=== PATIENT | male | born 1950 | race Caucasian/White ===

== ENCOUNTER → 2020-04-21 14:45 | Outpatient (CLI) | payer OTHER, SELFPAY ==
--- NOTE | ~2020-04-21 | MR_ITS ---
EXAMINATION: MR brain/brain stem wo con DATE: 04/21/2020 15:32 INDICATION: Recurrent vertigo. Bilateral tinnitus. TECHNIQUE: Magnetic resonance imaging (MRI) of the brain and brainstem was performed without intraven ous contrast. Sequences included sagittal and axial T1-weighted FSE, axial diffusion-weighted FS EPI, axial T2*-weighted GRE, axial T2-weighted FLAIR Propeller, axial T2-weighted Propeller, small field- of-view coronal FIESTA, small kragq-hx-idrx coronal T1-weighted FSE, and small onjvx-bb-eoce axial T1 -weighted SPGR. Apparent diffusion coefficient (ADC) maps were created. COMPARISON: None. FINDINGS: There is no intracranial hemorrhage, acute infarction, or abnormal intracranial mass lesion . The ventricles are normal in size. The paranasal sinuses are clear. The orbits are normal. There is a trace left mastoid effusion. The internal auditory canals and inner and middle ears are normal. IMPRESSION: 1. Normal brain. Reviewed, dictated and finalized at location B. IMPRESSION: 1. Normal brain.
== END ==
PROVIDERS: Visit Provider Student in an Organized Health Care Education/Training Program
DX: R42 Dizziness and giddiness (principal); R26.89 Other abnormalities of gait and mobility; H93.13 Tinnitus, bilateral
CPT/HCPCS: 70551

== ENCOUNTER 2022-09-04 08:12 | Outpatient (CLI) | payer OTHER, SELFPAY ==
[2022-09-04 07:37] LABS: Albumin Level 4.2 g/dL (3.5-5.1); Anion Gap 4 mmol/L (8-16); Blood Urea Nitrogen 13 mg/dL (9-20); Calcium 9.4 mg/dL (8.4-10.2); Carbon Dioxide 30 mmol/L (22-30); Chloride 108 mmol/L (98-107); Estimated Glomerular Filt Rate > 60; Glucose 92 mg/dL (65-110); Phosphorus 2.7 mg/dL (2.5-4.5); Potassium 4.2 mmol/L (3.4-5.0); Sodium 142 mmol/L (137-145)
[2022-09-04 07:46] LABS: Parathyroid Intact 239.2 pg/mL (7.5-53.5)
[2022-09-04 08:06] LABS: Vitamin D 25 Hydroxy 52.6 ng/mL
== END 2022-09-04 08:13 | disposition home or self-care (01) ==
PROVIDERS: Visit Provider Internal Medicine Endocrinology, Diabetes & Metabolism
DX: E21.3 Hyperparathyroidism, unspecified (principal); R26.89 Other abnormalities of gait and mobility; E07.9 Disorder of thyroid, unspecified
CPT/HCPCS: 36415; 80069; 82306; 82607; 83970; 84443

== ENCOUNTER 2022-09-15 10:05 | Outpatient (CLI) | payer OTHER, SELFPAY ==
[2022-09-15 11:33] LABS: Creatinine Urine 96.4 mg/dL
[2022-09-15 11:43] LABS: Creatinine 24 Hour Urine 1.6 gm/24 (1.0-2.0); Total Volume 24 Hour Urine 1750 ml
[2022-09-25 13:48] LABS: Total Volume 1750 mL; Urine Calcium 11.4 mg/dL
== END 2022-09-15 10:06 | disposition home or self-care (01) ==
LOC: ANHLAB 10:05
PROVIDERS: PCP Student in an Organized Health Care Education/Training Program; Visit Provider Internal Medicine Endocrinology, Diabetes & Metabolism
DX: E21.3 Hyperparathyroidism, unspecified (principal); Z13.820 Encounter for screening for osteoporosis
CPT/HCPCS: 81050; 82340; 82570

== ENCOUNTER 2022-10-05 10:35 | Outpatient (CLI) | payer OTHER, SELFPAY ==
--- NOTE | ~2022-10-05 | NM_ITS ---
EXAMINATION: NM parathyroid w imaging DATE: 10/05/2022 15:36 INDICATION: Parathyroid adenoma. TECHNIQUE: 19.6 mCi Tc99m sestamibi was administered intravenously. Anterior images of the neck were obtained immediately and at 3 hours. SPECT images of the neck were obtained. COMPARISON: None. FINDINGS: There is persistent focal increased activity in the area of inferior right thyroid lobe. IMPRESSION: 1. Persistent focal increased activity in the area of inferior right thyroid lobe, consistent with a parathyroid adenoma. Reviewed, dictated and finalized at location A. Y LIQUEFIER IMPRESSION: 1. Persistent focal increased activity in the area of inferior right thyroid lo be, consistent with a parathyroid adenoma.
== END 2022-10-05 10:36 | disposition home or self-care (01) ==
PROVIDERS: PCP Student in an Organized Health Care Education/Training Program; Visit Provider Internal Medicine Endocrinology, Diabetes & Metabolism
DX: E21.3 Hyperparathyroidism, unspecified (principal); Z13.820 Encounter for screening for osteoporosis
CPT/HCPCS: 78070; A9500

== ENCOUNTER → 2022-10-08 11:36 | Outpatient (CLI) | payer OTHER, SELFPAY ==
--- NOTE | ~2022-10-08 | DEXA_ITS ---
Bone Density Report Name: BRUNA JENSEN Age: 72 Sex: Male Ethnicity: White Date of : 1950 Indication: screening for osteoporosis; parental hip fracture; Referring Provider: Anna Pratt Study: Bone densitometry was performed. Exam Date: October 08, 2022 Accession number: [id number] Bone Density: Region BMD T-score Z-score Classification AP Spine (L1, L2) 1.057 0.0 1.0 Normal Femoral Neck (Left) 0.833 -0.7 0.6 Normal Total Hip (Left) 1.010 -0.2 0.6 Normal Femoral Neck (Right) 0.790 -1.0 0.2 Normal Total Hip (Right) 0.966 -0.4 0.3 Normal Total Hip Mean 0.988 -0.3 0.5 Normal World Health Organization criteria for BMD impression classify patients as: Normal (T-score at or above -1.0), Osteopenia (T-score between -1.0 and -2.5), or Osteoporosis (T-score at or below -2.5). 10-year Fracture Risk: FRAX not reported because: All T-scores for Spine Total, Hip Total, Femoral Neck at or above -1.0 Clinical Information Provided by Patient: Parent has had a hip fracture Patient maximum height was 72.5 Drinks caffeinated beverages Impression: The patient has normal bone mass. The patient has risk factors, including: parental hip fracture. Discussion: BONE DENSITY IS ABOVE THE MINIMUM DESIRABLE LEVEL AT ALL SKELETAL SITES TESTED. This patient?s bone mineral density is above the minimum desirable level (T-score -1.0 or better) at all sites measured. The patient should follow a healthful lifestyle (good nutrition with adequate calcium and vitamin D, and appropriate weight-bearing exercise). Follow-Up: Consider repeating this study in 5 years or sooner if there is some new clinical indication. Reported by: NGOZI on 10/08/2022 12:21:00 PM. Reviewed, dictated and finalized at location A. [facility]
== END ==
PROVIDERS: PCP Student in an Organized Health Care Education/Training Program; Visit Provider Internal Medicine Endocrinology, Diabetes & Metabolism
DX: E21.3 Hyperparathyroidism, unspecified (principal)
CPT/HCPCS: 77080

== ENCOUNTER 2023-01-15 01:08 | Day surgery (SDC) | payer OTHER, SELFPAY ==
[2022-12-31 15:55] VITALS: BMI 25.7
[2023-01-15 11:32] VITALS: BP 134/74; PULSE 57; RESP 16; TEMP 36.3; O2SAT 99; BMI 25.7
[2023-01-15] MEDS: LACTATED RINGERS 1,000 ML 150 ML IV CONT (11:51)
--- NOTE | 2023-01-15 11:56 | PM.HPGS ---
History of Present Illness History of Present Illness Consent: Risks, benefits, and alternatives have been discussed and questions answered. Patient agrees to proceed with procedure. Chief complaint: hx colon polyps Narrative: Ryan Lindsey is a 72 year old male Presents for screening colonoscopy. Patient's current weight appetite and bowel movements are normal. Patient denies abdominal pain. He has a history of adenomatous colon polyps removed from the colon 2016. Patient presents today for surveillance colonoscopy. Patient states in frequently he has noticed a fleeting pain adjacent to his anus. He states this is not necessarily associated with bowel movements appears to be external to the side of his anus. Not present today and occurs not very often at all. He wishes me to evaluate this at time of endoscopy. Review of Systems Review of Systems: Review of systems noncontributory. [facility] Past Medical History Medical History GERD without esophagitis Primary osteoarthritis of both knees Family History Family History Father Family history of congestive heart failure, Onset Age: 84 Patient's father is , Onset Age: 84 Social History Social History (Updated 11/12/22 @ 08:33 by SERVANDO Stock) Smoking packs per day: 0.25 Smoking cigarettes per day: 5.0 Years smoked: 20 Smoking pack-years: 5.00 Smoking status: Former smoker Tobacco type: cigarettes Smokeless tobacco user: chewing tobacco Smoking end date: 08/26/90 Alcohol intake: current Alcohol use details: rare Substance use: never Substance use type: does not use Lack of Transportation: No Lack of Food: Never True Current Housing: I Have Housing Concerned About Future Housing: No Difficulty Paying Gas/Electric Bills: No Difficulty Paying for Meds: No Currently Unemployed: No Education: Bachelor's Degree Difficulty w/ Childcare or Family Care: No Living arrangements: with family Occupation/Education: retired Gender identity (if verbalized by the patient): Male Spiritual care concerns: No Meds Home Medications and Allergies Home Medications Medication Instructions Recorded Confirmed Type multivitamin 1 cap PO DAILY 08/28/19 12/31/22 History lutein 20 mg tablet 20 mg PO DAILY 08/30/22 12/31/22 History omega 1-hje-epn-fish oil 300 1 cap PO DAILY 08/30/22 12/31/22 History mg-1,000 mg capsule (Fish Oil) rosuvastatin 5 mg tablet 5 mg PO DAILY 08/30/22 12/31/22 History saw palmetto 450 mg capsule 450 mg PO DAILY 08/30/22 12/31/22 History Allergies Allergy/AdvReac Type Severity Reaction Status Date / Time Penicillins Allergy Intermediate rash Verified 12/31/22 15:54 doxycycline Allergy Mild tingling Verified 12/31/22 15:54 in fingers erythromycin base Allergy Mild rash Verified 12/31/22 15:54 MYOCIN Allergy Intermediate rash Uncoded 12/31/22 15:54 Vital Signs Vital Signs - 24 hr 01/15/23 11:32 Temperature 97.4 F L Pulse Rate 57 L Respiratory Rate 16 Blood Pressure 134/74 Pulse Oximetry 99 Oxygen Delivery Room Air Exam Narrative: Physical exam reveals patient to be alert. Vital signs stable. HEENT exam is unremarkable. Patient is anicteric. Lungs are clear. Heart without murmur. Abdomen bowel sounds present soft nontender with no organomegaly. Digital external rectal exam peers normal with no obvious lesions. No tenderness noted. Assessment and Plan Assessment and plan (1) History of colon polyps: Code(s): Z86.010 - Personal history of colonic polyps Status: Acute Assessment and Plan: Patient has a history of colon polyps. Plan for surveillance colonoscopy now and consider this a 5 year intervals.
--- NOTE | 2023-01-15 12:23 | WPDANESEPPF ---
Anes - Initial Pre Proc Eval Procedure: Operation Date: 01/15/23 12:30 Proposed Procedures p Colonoscopy - Eder Kramer MD Date/Time: 01/15/23 12:23 Surgeon: Eder Kramer MD Pre Op Diagnosis: hx colon polyps Patient Data Age: 72 Gender: M Height: 1.83 m Weight: 86.1 kg Last Vital Signs Temp 97.4 F L 01/15/23 11:32 Pulse 57 L 01/15/23 11:32 Resp 16 01/15/23 11:32 BP 134/74 01/15/23 11:32 Pulse Ox 99 01/15/23 11:32 O2 Del Method Room Air 01/15/23 11:32 Allergies Allergy/AdvReac Type Severity Reaction Status Date / Time Penicillins Allergy Intermediate rash Verified 12/31/22 15:54 doxycycline Allergy Mild tingling Verified 12/31/22 15:54 in fingers erythromycin base Allergy Mild rash Verified 12/31/22 15:54 MYOCIN Allergy Intermediate rash Uncoded 12/31/22 15:54 Home Medications Medication Instructions Recorded Confirmed Type multivitamin 1 cap PO DAILY 08/28/19 12/31/22 History lutein 20 mg tablet 20 mg PO DAILY 08/30/22 12/31/22 History omega 8-hdz-rif-fish oil 300 1 cap PO DAILY 08/30/22 12/31/22 History mg-1,000 mg capsule (Fish Oil) rosuvastatin 5 mg tablet 5 mg PO DAILY 08/30/22 12/31/22 History saw palmetto 450 mg capsule 450 mg PO DAILY 08/30/22 12/31/22 History Patient hx anesthesia problems: none Family hx anesthesia problems: none Results Review: All pre-operative results and documents have been reviewed as part of the pre-operative evaluation. [facility] Past Medical History Medical History GERD without esophagitis Primary osteoarthritis of both knees Family History Family History Father Family history of congestive heart failure, Onset Age: 84 Patient's father is , Onset Age: 84 Social History Social History (Updated 11/12/22 @ 08:33 by SERVANDO Stock) Smoking packs per day: 0.25 Smoking cigarettes per day: 5.0 Years smoked: 20 Smoking pack-years: 5.00 Smoking status: Former smoker Tobacco type: cigarettes Smokeless tobacco user: chewing tobacco Smoking end date: 08/26/90 Alcohol intake: current Alcohol use details: rare Substance use: never Substance use type: does not use Lack of Transportation: No Lack of Food: Never True Current Housing: I Have Housing Concerned About Future Housing: No Difficulty Paying Gas/Electric Bills: No Difficulty Paying for Meds: No Currently Unemployed: No Education: Bachelor's Degree Difficulty w/ Childcare or Family Care: No Living arrangements: with family Occupation/Education: retired Gender identity (if verbalized by the patient): Male Spiritual care concerns: No Anes - Eval Final PreProcedure Day of Procedure 01/15/23 12:23 Patient weight: normal Heart: regular rate and rhythm Lungs: clear to auscultation Airway: Mallampati scale class II Neurological: alert and oriented Last oral intake: >/= 8 hours ASA classification: II Emergent: no Anesthetic plan: proceed Anesthesia type and monitoring: general GIVS and standard monitoring Results Review: All pre-operative results and documents have been reviewed as part of the pre-operative evaluation. Informed Consent: The patient's anesthetic plan and its attendant risks and benefits were discussed with the patient/family/POA. Questions were solicited and answers provided to the satisfaction of the patient/family/POA.
[2023-01-15] MEDS: SIMETHICONE ORAL SUSPENSION 20 MG/0.3 ML 30 ML BOTTLE 0.6 ML IRRIGATION (12:50)
[2023-01-15 12:55] VITALS: BP 119/70; PULSE 50; RESP 22; O2SAT 100
[2023-01-15 13:05] VITALS: BP 126/70; PULSE 58; RESP 20; O2SAT 99
[2023-01-15 13:15] VITALS: BP 136/66; PULSE 52; RESP 20; O2SAT 100
== END 2023-01-15 13:24 | disposition home or self-care (01) ==
PROVIDERS: PCP Student in an Organized Health Care Education/Training Program; Visit Provider Internal Medicine Gastroenterology
PROC: 0DJD8ZZ Inspection of Lower Intestinal Tract, Via Natural or Artificial Opening Endoscopic (ICD-10-PCS; CPT 45378; principal; 2023-01-15 12:30)
DX: Z12.11 Encounter for screening for malignant neoplasm of colon (principal); K57.30 Diverticulosis of large intestine without perforation or abscess without bleeding; Z86.010 Personal history of colon polyps; K64.8 Other hemorrhoids; M17.0 Bilateral primary osteoarthritis of knee; Z87.891 Personal history of nicotine dependence
CPT/HCPCS: G0105; J2704; J7120

== ENCOUNTER 2023-03-26 09:14 | Outpatient (CLI) | payer OTHER, SELFPAY ==
[2023-03-26 13:02] LABS: Albumin Level 4.2 g/dL (3.5-5.1); Anion Gap 5 mmol/L (8-16); Blood Urea Nitrogen 14 mg/dL (9-20); Calcium 9.9 mg/dL (8.4-10.2); Carbon Dioxide 31 mmol/L (22-30); Chloride 105 mmol/L (98-107); Estimated Glomerular Filt Rate > 60; Glucose 92 mg/dL (65-110); Phosphorus 2.5 mg/dL (2.5-4.5); Potassium 4.7 mmol/L (3.4-5.0); Sodium 141 mmol/L (137-145)
[2023-03-26 13:14] LABS: Parathyroid Intact 181.7 pg/mL (7.5-53.5)
[2023-03-26 13:20] LABS: Vitamin D 25 Hydroxy 53.4 ng/mL
== END 2023-03-26 09:15 | disposition home or self-care (01) ==
LOC: ANHWCLAB 09:15
PROVIDERS: PCP Student in an Organized Health Care Education/Training Program; Visit Provider Internal Medicine Endocrinology, Diabetes & Metabolism
DX: R79.89 Other specified abnormal findings of blood chemistry (principal); D35.1 Benign neoplasm of parathyroid gland; E21.3 Hyperparathyroidism, unspecified
CPT/HCPCS: 36415; 80069; 82306; 83970

== ENCOUNTER 2024-04-11 08:11 | Emergency (ER) | payer OTHER, SELFPAY ==
[2024-04-11 08:27] VITALS: BP 136/86; PULSE 55; RESP 16; TEMP 36.2; O2SAT 100
--- NOTE | 2024-04-11 08:45 | ED.SKABFB ---
HPI - Skin/Abscess/Foreign Bdy General Chief complaint: Skin/Abscess/Foreign Body Stated complaint: rash, pos shingles/poison cinthia Time Seen by Provider: 04/11/24 08:40 Source: patient, RN notes reviewed and old records reviewed Mode of arrival: ambulatory Limitations: no limitations History of Present Illness HPI narrative: 73 year old male presents to [facility] care with complaints of rash for the past 4 days to his right inner arm at the elbow are, right lateral abdominal area and also small area to his left inner arm which is itchy.He reports that he has applied OTC topical medication for the itch and used topical antibacterial wash to rash areas.Patient reports that that he was playing disc golf and thinks he was exposed to some poisonous plant. Patient denies any difficulty breathing or any difficulty swallowing. MD complaint: rash Onset (ago): day(s) (4) Quality: pruritic Treatments prior to arrival: OTC topical medication Related Data Home Medications Medication Instructions Recorded Confirmed multivitamin 1 cap PO DAILY 08/28/19 04/11/24 lutein 20 mg tablet 20 mg PO DAILY 08/30/22 04/11/24 saw palmetto 450 mg capsule 450 mg PO DAILY 08/30/22 04/11/24 cetirizine 10 mg tablet (Zyrtec) 10 mg PO DAILY PRN Allergy Symptoms 02/05/24 04/11/24 omega 1-skm-dqn-fish oil 300 1 cap PO .twice weekly 02/05/24 04/11/24 mg-1,000 mg capsule (Fish Oil) rosuvastatin 10 mg tablet 10 mg PO DAILY 04/11/24 04/11/24 Allergies Allergy/AdvReac Type Severity Reaction Status Date / Time Penicillins Allergy Intermediate rash Verified 02/05/24 14:56 doxycycline Allergy Mild tingling Verified 02/05/24 14:56 in fingers erythromycin base Allergy Mild rash Verified 02/05/24 14:56 MYOCIN Allergy Intermediate rash Uncoded 02/05/24 14:56 Review of Systems Review of Systems: CONSTITUTIONAL: Denies fever, chills, or sweats. CARDIOVASCULAR: Denies chest pain, palpitations, or edema. RESPIRATORY: Denies cough or dyspnea. SKIN: Reports rash to right inner arm,right lateral abdomen, and left arm which is itchy MUSCULOSKELETAL: Denies joint pain or myalgia. NEUROLOGIC: Denies headache, numbness, or weakness. All systems reviewed & are unremarkable except as noted in HPI and below PMFSH Past Medical History Medical History (Updated 04/12/24 @ 19:54 by Ann Walker NP) Elevated cholesterol GERD without esophagitis Primary osteoarthritis of both knees Surgical History Surgical History History of parathyroidectomy 06/2023 Family History Family History Father Family history of congestive heart failure, Onset Age: 84 Patient's father is , Onset Age: 84 Social History Social History Smoking packs per day: 0.25 Smoking cigarettes per day: 5.0 Years smoked: 20 Smoking pack-years: 5.00 Smoking status: Former smoker Tobacco type: cigarettes Smokeless tobacco user: chewing tobacco Smoking end date: 08/26/90 Alcohol intake: current Alcohol use details: rare Substance use: never Substance use type: does not use Lack of Transportation: No Lack of Food: Never True Current Housing: I Have Housing Concerned About Future Housing: No Difficulty Paying Gas/Electric Bills: No Difficulty Paying for Meds: No Currently Unemployed: No Education: Bachelor's Degree Difficulty w/ Childcare or Family Care: No Living arrangements: with family Occupation/Education: retired Gender identity (if verbalized by the patient): Male Spiritual care concerns: No Comments At time of signature, agree with nursing past medical, surgical, social and family history. There is no relevant family history pertinent to the presenting complaint Exam Narrative: GENERAL: Well-appearing, well-nourished, and in no acute dis
== END 2024-04-11 09:03 | disposition home or self-care (01) ==
PROVIDERS: Emergency Provider Registered Nurse; PCP Student in an Organized Health Care Education/Training Program
DX: L25.9 Unspecified contact dermatitis, unspecified cause (principal); E78.00 Pure hypercholesterolemia, unspecified; K21.9 Gastro-esophageal reflux disease without esophagitis; M17.0 Bilateral primary osteoarthritis of knee; Z90.89 Acquired absence of other organs
CPT/HCPCS: 99213; G0463

== ENCOUNTER 2024-11-16 08:30 | Outpatient (CLI) | payer OTHER, SELFPAY ==
--- OUTSIDE RECORDS SUMMARY | 2024-11-16 08:56 | XMS_ITS | Clinical Summary ---
Author Organization [facility] Address [address] [place] [address] Care Team Providers Care Lead Front End Developer Name Role Phone Neftali Forrester MD Unavailable Kaushal Walker MD Unavailable [phone] Antione Valdez DO Primary Care Provider + Source Comments [facility],non-owned Affiliates and Associated Physician Practices is amultiple site organization consisting of ambulatory clinics and hospital sitesin [place], [place], [place] and [place]. This disclosure is being madepursuant to the Care Everywhere program and may not contain all information available regarding this patient. Last updated 18.[facility] Allergies Active Allergy Reactions Criticality Noted Date Comments Allergy Photosensitivity,Swe lling,Headach e 04/26/2021 DOXYCYCLINE Erythromycin Rash,Unknown Medium 04/08/2020 Penicillins Rash Medium 11/20/2008 Tetracycline Rash Medium 11/20/2008 Medications * Be aware that medications may not be up to date on this document. Alwaysverify current medications with the patient. Medication Sig Dispensed Refills Start Date End Date Status cetirizine (ZyrTEC) 10 MG tablet Take 1 (one) tablet by mouth once daily Active Lutein-Zeaxanthin 20-1 MG once daily 2 Active Multiple Vitamins-Minerals (Multi Vitamin/Minerals) TABS Take 1 (one) tablet by mouth once daily Active [place]-3 Fatty Acids (Fish Oil) 600 MG Take 300 mg by mouth once daily Active rosuvastatin (Crestor) 10 MG tablet Take 1 (one) tablet by mouth at bedtime 3 Active clobetasol (Temovate) 0.05 % ointment Apply 1 g to affected area as directed 4 Active Saw [place], Serenoa repens, (SAW PALMETTO PO) Take by mouth once daily Active acetaminophen (Tylenol) 325 MG tablet Take 2 (two) tablets by mouth every 6 hours as needed for Fever or Pain Maximum allowable Acetaminophen amount = 4 Grams (4000 mg) / 24 hours. 30 tablet 1 4 Active ibuprofen (Motrin) 600 MG tablet Take 1 (one) tablet by mouth every 6 hours as needed for Pain 30 tablet 4 Active oxyCODONE, immediate release, (Roxicodone) 5 MG tabletIndications:Primar y hyperparathyroidism (HCC) Take 1 (one) tablet by mouth every 6 hours as needed for Pain 12 tablet 4 Active Active Problems Problem Noted Date Diagnosed Date Routine general medical exam ination at a health care facility 10/27/2013 URI (upper respiratory infection) 06/21/2011 Vitamin D deficiency 02/15/2010 Resolved Problems Problem Noted Date Diagnosed Date Resolved Date Primary hyperparathyroidism 12/22/2022 12/11/2023 Encounters Date Type Department Care Team Description 11/02/2024 Lab Requisition [facility] - DermPath Lab [address] [place] [address] Jc Beauchamp MD Neoplasm of uncertain behavior of skin from Last 3 Months Immunizations Name Administration Dates Next Due INFLUENZA [id number], HISTORIC VACCINE 04/26,06/16/2021,05/04/2020,2018,06/23/2018 INFLUENZA VACCINE 05/16/2023, 5,06/06/2014,2012 INFLUENZA VACCINE, ADJUVANTE D, QUADR. (FLUAD QUADRIVALENT; 65Y+) (AIIV4) 05/16/2023 INFLUENZA VACCINE, HIGH-DOSE , QUADR. (FLUZONE HIGH-DOSE QUADRIVALENT; 65Y+), 0.7 ML (HD-IIV4) 05/13/2022,06/16/2021 INFLUENZA VACCINE, HIGH-DOSE , TRIV. (FLUZONE HIGH-DOSE TRIVALENT; 65Y+) (HD-IIV3) 05/04/2020,06/25/2019,06/23/2018 INFLUENZA VACCINE, TRIV. (FL UZONE; FLULAVAL; FLUARIX; AFLURIA TRIVALENT; 6MO+), 0.5 ML (IIV3) 06/08/2015 PNEUMOCOCCAL PCV VACCINE 05/01/2022 PNEUMOCOCCAL PCV20 CONJ VAC IM 05/01/2022 PNEUMOCOCCAL PPSV23 08/26/2016 Pneumococcal Pcv13 Conj 10/07/2014 RSV AREXVY 60YR+ 0.5ML 07/11/2023 TDAP (7yrs+) 08/26/2016 ZOSTER VACCINE, LIVE 08/26/2017 Zoster Hzv Vacc Recombinant Inj Im 03/09/2021, Social History Tobacco Use Types Packs/Day Years Used Date Smoking Tobacco: Former Cigarettes Smokeless Tobacco: Never Tobacco Cessation:Counseling Given: Not Answered Alcohol Use Standard Drinks/Week Comments No 0 (1 standard drink = 0.6 oz pur e alcohol) AUDIT-C Answer Date Recorded Q1: How often do you have a drink containing alcohol? Never 11/07/2023 Q2: How many drinks containi ng alcohol do you have on a typical day when you are drinking? Patient does not drink Q3: How often do you have si x or more drinks on one occasion? Never 11/07/2023 Sex and Gender Information Value Date Recorded Sex Assigned at Not on file Gender Identity Not on file Sexual Orientation Not on file Last Filed Vital Signs Vital Sign Reading Time Taken Comments Blood Pressure 148/95 12/11/2023 9:24 AM CDT Pulse 89 12/11/2023 9:24 AM CDT Temperature 36.6 C (97.8 F) 11/07/2023 10:40 AM CDT Respiratory Rate 16 11/07/2023 11:30 AM CDT Oxygen Saturation 99% 11/07/2023 11:30 AM CDT Inhaled Oxygen Concentration - - Weight 88.1 kg (194 lb 3.2 oz) 12/11/2023 9:24 A M CDT Height 182.9 cm (6') 12/11/2023 9:24 AM CDT Body Mass Index 26.34 12/11/2023 9:24 AM CDT Plan of Treatment Health Maintenance Due Date Last Done Comments COLOGUARD (AGES 45-75) - COLON CA SCREENING [address] COLONOGRAPHY - COLON CA SCREENING 1950 FIT - COLON CA SCREENING 1950 FLEX SIG - COLON CA SCREENING 1950 MEDICARE AWV 12 MONTHS 1950 COLONOSCOPY - COLON CA SCREENING 05/17/2016 05/17/2006 Colorectal Cancer Screening 05/17/2016 COVID-19 VACCINE ( season) 2024 06/13/2023, 05/12/2022, 01/06/2022, Additional history exists INFLUENZA VACCINE (#1) 2024 3, 05/16/2023, 05/13/2022, Additional history exists DEPRESSION SCREENING 08/26/2024 DTAP/TDAP/TD VACCINES (2 - Td or Tdap) 08/26/2026 08/26/2016 ZOSTER VACCINE Completed 03/09/2021, 04/27, 08/26/2017 PNEUMOCOCCAL VACCINE 50+ Completed 022, 05/01/2022, 08/26/2016, Additional history exists HEPATITIS C SCREENING Completed 06/18/2022 Respiratory Syncytial Virus (RSV) Vaccine Pt: or over 60 yrs Completed 07/11/2023 HEPATITIS B VACCINE Aged Out No longe r eligible based on patient's age to complete this topic HIB VACCINE Aged Out No longer eligi ble based on patient's age to complete this topic HPV VACCINE Aged Out No longer eligi ble based on patient's age to complete this topic MENINGOCOCCAL (Group B) VACCINE SHARED DECISION-MAKING Aged Out No longer eligible based on patient's age to complete this topic MENINGOCOCCAL GROUPS A/C/Y/W VACCINE Aged Out No longer eligible based on patient's age to complete this topic Procedures Procedure Name Priority Date/Time Associated Diagnosis Comments DERMATOPATHOLOGY Routine 11/02/2024 12:0 0 AM CDT Neoplasm of uncertain behavior of skin from Last 3 Months Results * DERMATOPATHOLOGY (11/02/2024 12:00 AM CDT) Case Report Dermatopathology Report Case: [id number] Authorizing Provider: Jc Beauchamp MD Collected: 11/02/2024 12:00 AM Ordering Location: [facility] - Received: 11/03/2024 01:02 PM DermPath Lab Pathologist: Shirley Carvalho MD Specimen: Skin, left medial malar cheek 2:16 PM CDT DERMATOPATHOLOGY LABORATORY Final Diagnosis Specimen A. SKIN, left medial malar cheek: BASAL CELL CARCINOMA, NODULAR TYPE (C44.319) EPIDERMOID CYST WITH EVIDENCE OF RUPTURE (L72.0) 2:16 PM CDT DERMATOPATHOLOGY LABORATORY Clinical History BCC 2:16 PM CDT DERMATOPATHOLOGY LABORATORY Gross Description Specimen A: Received is one formalin filled container labeled with the patients name and designated left medial malar cheek. The specimen consists of a shave removal measuring 8x7x1 mm. Jar 0. 2:16 PM CDT DERMATOPATHOLOGY LABORATORY Microscopic Description Specimen A. SKIN, left medial malar cheek: Within the dermis there are aggregates of basaloid cells with a high nuclear to cytoplasmic ratio and peripheral palisading. Within the dermis, there is a space lined by epithelium that resembles normal epidermis and the infundibular portion of the hair follicle. Surrounding this is an infiltrate with neutrophils, histiocytes, and multinucleated giant cells. 2:16 PM CDT DERMATOPATHOLOGY LABORATORY Disclaimer An external and internal positive and negative controls are appropriate for the histochemical, immunohistochemical and immunofluorescence stain(s) in this case (if any), except where stated explicitly. The performance characteristics of the stain(s) cited in this report were developed and its performance characteristic determined by the Dermatopathology Laboratory at [facility], directed by Dr. Tim Jackson. These tests need not be, and therefore are not, approved by the [place] Food and Drug Administration. The tests are used for clinical purposes. Billing Codes Specimen Charges Stain Charges 86897 1 5 2:16 PM CDT DERMATOPATHOLOGY LABORATORY Embedded Images 5 2:16 PM CDT DERMATOPATHOLOGY LABORATORY Pathology/Cytolog y TISSUE SPECIMEN FROM SKIN / Unknown 11/02/2024 11/03/2024 1:02 PM CDT Jc Beauchamp MD LAB - PATHOLOGY/CYTO LOGY ORDERABLES DERMATOPATHOLOGY LABORATORY [facility] - Department of Dermatology [facility] [address] [place] [address], [facility] [phone] from Last 3 Months Care Teams Lead Front End Developer Relationship Specialty Start Date End Date Antione Valdez DO [address] [place] [id number] PCP - General 11/23/22 Neftali Forrester MD [address] [place] [address] 04/06/10 Kaushal Walker MD [address] [address] 04/06/10
--- OUTSIDE RECORDS SUMMARY | 2024-11-16 08:56 | XMS_ITS | Encounter Summary ---
Author Organization [facility] Address [address] [place] [address] Care Team Providers Care Milled Rice Broker Name Role Phone Antione Valdez DO Primary Care Provider + Encounter Details Date Type Department Care Team (Late st Contact Info) Description 11/16/2024 7:40 AM CDT Laboratory Only [facility] Family & Internal Medicine [facility] [address] [place] [address] Antione Valdez DO [address] [place], [place] [phone] Social History Tobacco Use Types Packs/Day Years Used Date Smoking Tobacco: Former Cigarettes Q uit: 08/26/1977 Smokeless Tobacco: Never Comments:NA Alcohol Use Standard Drinks/Week Comments Not Currently 0 (1 standard drink = 0.6 oz pure alcohol) Maybe 2 highballs a year maybe. AUDIT-C Answer Date Recorded Q1: How often do you have a drink containing alc ohol? Monthly or less 03/23/2024 Q2: How many drinks containi ng alcohol do you have on a typical day when you are drinking? Patient declined 03/23/2024 Q3: How often do you have si x or more drinks on one occasion? Never 03/23/2024 PHQ-2 Answer Date Recorded Patient Health Questionnaire-2 Score 0 08/12/2024 Sex and Gender Information Value Date Recorded Sex Assigned at Male 08/12/2024 11:32 AM PROFESSOR OF COUNSELING Legal Sex Male 10:45 AM CDT Gender Identity Male 09/18/2021 5:33 AM PROFESSOR OF COUNSELING Sexual Orientation Straight 09/18/2021 5: 33 AM PROFESSOR OF COUNSELING documented as of this encounter Plan of Treatment Not on file documented as of this encounter Procedures Procedure Name Priority Date/Time Associated Diagnosis Comments COLLECTION VENOUS BLOOD VENIPUNCTURE Routine 11/16/2024 8:08 AM CDT Pure hypercholesterolemia Mild episode of recurrent major depressive disorder Annual physical exam Screening for prostate cancer documented in this encounter Visit Diagnoses Diagnosis Pure hypercholesterolemia Mild episode of recurrent major depressive disorder Annual physical exam Routine general medical examination at a health care facility Screening for prostate cancer Special screening for malignant neoplasm of prostate documented in this encounter Additional Health Concerns Assessment Noted Time PHQ-9 Depression Total Score: 0 03/23/20 24 11:14 AM CDT documented as of this encounter Care Teams Milled Rice Broker Relationship Specialty Start Date End Date Antione Valdez DO [address] [place] [address] PCP - General FAMILY PRACTICE 04/08/20 documented as of this encounter
--- OUTSIDE RECORDS SUMMARY | 2024-11-16 08:56 | XMS_ITS | Encounter Summary ---
Author Organization [facility] Address [address] [place] [address] Care Team Providers Care Mucking Machine Operator Name Role Phone Antione Valdez DO Primary Care Provider + Encounter Details Date Type Department Care Team (Latest Contact Info) Description 11/16/2024 Travel Social History Tobacco Use Types Packs/Day Years [...] Sex Assigned at Male 08/12/2024 11:32 AM COW PUNCHER Legal Sex Male 10:45 AM CDT Gender Identity Male 09/18/2021 5:33 AM COW PUNCHER Sexual Orientation Straight 09/18/2021 5: 33 AM COW PUNCHER documented as of this encounter Plan of Treatment Not on file documented as of this encounter Visit Diagnoses Not on filedocumented in this encounter Additional Health Concerns Assessment Noted Time PHQ-9 Depression Total Score: 0 03/23/20 11:14 AM CDT documented as of this encounter Care Teams Mucking Machine Operator Relationship Specialty Start Date End Date Antione Valdez DO [address] [place] [address] PCP - General FAMILY PRACTICE 04/08/20 documented as of this encounter
--- OUTSIDE RECORDS SUMMARY | 2024-11-16 08:56 | XMS_ITS | Encounter Summary ---
Author Organization [facility] Address [address] [place] [address] Care Team Providers Care Information Support Project Manager Name Role Phone Neftali Forrester MD Unavailable Kaushal Walker MD Unavailable [phone] Antione Valdez DO Primary Care Provider + Encounter Details Date Type Department Care Team (Late st Contact Info) Description 11/02/2024 Lab Requisition [facility] - DermPath Lab [address] [place] [phone] Jc Beauchamp MD [facility] DERMATOLOGY [address] [place] [phone] Neoplasm of uncertain behavior of skin Social History Tobacco Use Types Packs/Day Years Used Date Smoking Tobacco: Former Cigarettes Smokeless Tobacco: Never Alcohol Use Standard Drinks/Week Comments No 0 [...] on file Sexual Orientation Not on file documented as of this encounter Functional Status Functional Status Response Date of Assess ment Is person deaf or have serious hearing difficult y? No 11/07/2023 Is person blind or have serious difficulty seein g? No 11/07/2023 Does person have serious dif ficulty walking/climbing stairs? No 11/07/2023 Does person have difficulty dressing/bathing? No 11/07/2023 Does person have difficulty doing errands alone? No 11/07/2023 Cognitive Status Response Date of Assessm ent Does person have difficulty concentrating/remembering/making decisions? No 11/07/2023 documented as of this encounter Plan of Treatment Not on file documented as of this encounter Procedures Procedure Name Priority Date/Time Associated Diagnosis Comments DERMATOPATHOLOGY Routine 11/02/2024 12:0 0 AM CDT Neoplasm of uncertain behavior of skin documented in this encounter Results * DERMATOPATHOLOGY (11/02/2024 12:00 AM CDT) Case Report Dermatopathology Report Case: [id number] Authorizing Provider: Jc Beauchamp MD Collected: 11/02/2024 12:00 AM Ordering Location: [facility] - Received: 11/03/2024 01:02 PM [...] characteristic determined by the Dermatopathology Laboratory at [facility], directed by Dr. Tim Jackson. These tests need not be, and therefore are not, approved by the [place] Food and Drug Administration. The tests are used for clinical purposes. Billing Codes Specimen Charges Stain Charges 65677 1 2:16 PM CDT DERMATOPATHOLOGY LABORATORY Embedded Images 2:16 PM CDT DERMATOPATHOLOGY LABORATORY Pathology/Cytolog y TISSUE SPECIMEN FROM SKIN / Unknown 11/02/2024 11/03/2024 1:02 PM CDT Jc Beauchamp MD LAB - PATHOLOGY/CYTO LOGY ORDERABLES DERMATOPATHOLOGY LABORATORY [facility] - Department of Dermatology [facility] Medicine [address] [place] [address], [address] [phone] documented in this encounter Visit Diagnoses Diagnosis Neoplasm of uncertain behavior of skin documented in this encounter Care Teams Information Support Project Manager Relationship Specialty Start Date End Date Antione Valdez DO [facility] [place] [address] PCP - General 11/23/22 Neftali Forrester MD [address] [place] [address] 04/06/10 Kaushal Walker MD [address] [address] 04/06/10 documented as of this encounter
--- OUTSIDE RECORDS SUMMARY | 2024-11-16 08:56 | XMS_ITS | Encounter Summary ---
Author Organization [facility] Address [address] [place] [address] Care Team Providers Care Grinder Set Up Operator Universal Name Role Phone Alexiesau Antione José AMADOR Primary Care Provider + Encounter Details Date Type Department Care Team (Late st Contact Info) Description 05/14/2022 [place] Message Enc [facility] [address] [employer], [facility] Provider Heart monitor results Social History Tobacco Use Types Packs/Day Years Used Date Smoking Tobacco: Former Cigarettes 0.1 10 0 08/26/1975 - 08/26/1985 Smokeless Tobacco: Never Alcohol Use Standard Drinks/Week Comments Not Currently 6.7 (1 standard drin k = 0.6 oz pure alcohol) Maybe 2 highballs a year maybe. PHQ-2 Answer Date Recorded PHQ-2 Score - If the patient scores above 3, please move on to questions 3-9 0 09/20/2021 Sex and Gender Information Value Date Recorded Sex Assigned at Male 08/12/2024 11:32 AM HAND FUNNEL COATER Legal Sex Male 10:45 AM CDT Gender Identity Male 09/18/2021 5:33 AM HAND FUNNEL COATER Sexual Orientation Straight 09/18/2021 5: 33 AM HAND FUNNEL COATER COVID-19 Exposure Response Date Recorded In the last 10 days, have yo u been in contact with someone who was confirmed or suspected to have Coronavirus/COVID-19? No / Unsure 05/01/2022 8:57 AM CDT documented as of this encounter Plan of Treatment Not on file documented as of this encounter Visit Diagnoses Not on filedocumented in this encounter Additional Health Concerns Assessment Noted Time PHQ-9 Depression Total Score: 0 09/20/19 22 9:44 AM HAND FUNNEL COATER documented as of this encounter Care Teams Grinder Set Up Operator Universal Relationship Specialty Start Date End Date Antione Valdez DO [address] [place] [address] PCP - General FAMILY PRACTICE 04/08/20 documented as of this encounter
--- OUTSIDE RECORDS SUMMARY | 2024-11-16 08:56 | XMS_ITS | Encounter Summary ---
Author Organization [facility] Address [address] [place] [address] Care Team Providers Care Natural Gas Treating Unit Operator Name Role Phone Antione Valdez DO Primary Care Provider + Encounter Details Date Type Department Care Team (Late st Contact Info) Description 12/14/2022 MyChart Message Enc [facility] Family & Internal Medicine [facility] [address] [place] [phone] Antione Valdez DO [address] [place], [place] [phone] Do I have an appointment on December 24, 2022? Social History Tobacco Use Types Packs/Day Years Used Date Smoking Tobacco: Former Cigarettes Q uit: 08/26/1977 Smokeless Tobacco: Never Alcohol Use Standard Drinks/Week Comments Not Currently 0 (1 standard drink = 0.6 oz pure alcohol) Maybe 2 highballs a year maybe. PHQ-2 Answer Date Recorded Patient Health Questionnaire-2 Score 0 11/21/2022 Sex and Gender Information Value Date Recorded Sex Assigned at Male 08/12/2024 11:32 AM ARMORED CAR GUARD Legal Sex Male 10:45 AM CDT Gender Identity Male 09/18/2021 5:33 AM ARMORED CAR GUARD Sexual Orientation Straight 09/18/2021 5: 33 AM ARMORED CAR GUARD COVID-19 Exposure Response Date Recorded In the last 10 days, have yo u been in contact with someone who was confirmed or suspected to have Coronavirus/COVID-19? No / Unsure 11/21/2022 7:58 AM CDT documented as of this encounter Plan of Treatment Not on file documented as of this encounter Visit Diagnoses Not on filedocumented in this encounter Additional Health Concerns Assessment Noted Time PHQ-9 Depression Total Score: 0 07/05/20 22 9:47 AM ARMORED CAR GUARD documented as of this encounter Care Teams Natural Gas Treating Unit Operator Relationship Specialty Start Date End Date Antione Valdez DO [address] [place] [id number] PCP - General FAMILY PRACTICE 04/08/20 documented as of this encounter
--- OUTSIDE RECORDS SUMMARY | 2024-11-16 08:56 | XMS_ITS | Encounter Summary ---
Author Organization [facility] Address [address] [place] [address] Care Team Providers Care Washing Machine Striper Name Role Phone Antione Valdez DO Primary Care Provider + Encounter Details Date Type Department Care Team (Late st Contact Info) Description 05/04/2022 Luxofthart Message Enc [facility] Medical Group Family & Internal Medicine [facility] [address] [place] [address] Antione Valdez DO [address] [place], [place] [phone] [facility] / Parathyroid Question Social History Tobacco Use Types Packs/Day Years [...] Sex Assigned at Male 08/12/2024 11:32 AM ELECTRIC MOTOR REPAIRING SUPERVISOR Legal Sex Male 10:45 AM CDT Gender Identity Male 09/18/2021 5:33 AM ELECTRIC MOTOR REPAIRING SUPERVISOR Sexual Orientation Straight 09/18/2021 5: 33 AM ELECTRIC MOTOR REPAIRING SUPERVISOR COVID-19 Exposure Response Date Recorded In the [...] Total Score: 0 09/20/19 22 9:44 AM ELECTRIC MOTOR REPAIRING SUPERVISOR documented as of this encounter Care Teams Washing Machine Striper Relationship Specialty Start Date End Date Antione Valdez DO [address] [place] [address] PCP - General FAMILY PRACTICE 04/08/20 documented as of this encounter
--- OUTSIDE RECORDS SUMMARY | 2024-11-16 08:56 | XMS_ITS | Encounter Summary ---
Author Organization [facility] Address [address] [place] [address] Care Team Providers Care Jewel Inspector Name Role Phone Antione Valdez DO Primary Care Provider + Encounter Details Date Type Department Care Team (Late st Contact Info) Description 10/24/2022 MyChart Message Enc [facility] Medical Group Family & Internal Medicine [facility] [address] [place] [address] Antione Valdez DO [address] [place] [address] Ryan Lindsey / Parathyroid test results Social History Tobacco Use Types Packs/Day [...] please move on to questions 3-9 0 07/05/2022 Sex and Gender Information Value Date Recorded Sex Assigned at Male 08/12/2024 11:32 AM CONSTRUCTION FLAGGER Legal Sex Male 10:45 AM CDT Gender Identity Male 09/18/2021 5:33 AM CONSTRUCTION FLAGGER Sexual Orientation Straight 09/18/2021 5: 33 AM CONSTRUCTION FLAGGER documented as of this encounter Progress Notes * Antione Valdez DO - 10/29/2022 9:29 AM CST Needs to see ENT for the parathyroid finding. TRUCTION FLAGGER * Antione Valdez DO - 10/25/2022 8:58 PM CST 1 - I don't see results of parathyroid on imaging? 2 - It is WNL; can be repeated in 5 years. 3 - Unsure why this has occurred. 4 - Some specialists wait until the next scheduled follow-up to discuss findings. Have pt reached out to their office? I would recommend this. TRUCTION FLAGGER documented in this encounter Plan of Treatment Not on file documented as of this encounter Visit Diagnoses Not on filedocumented in this encounter Additional Health Concerns Assessment Noted Time PHQ-9 Depression Total Score: 0 07/05/20 22 9:47 AM CONSTRUCTION FLAGGER documented as of this encounter Care Teams Jewel Inspector Relationship Specialty Start Date End Date Antione Valdez DO [address] [place] [address] PCP - General FAMILY PRACTICE 04/08/20 documented as of this encounter
--- OUTSIDE RECORDS SUMMARY | 2024-11-16 08:56 | XMS_ITS | Encounter Summary ---
Author Organization [facility] Address [address] [place] [address] Care Team Providers Care Balance Truing Inspector Name Role Phone Antione Valdez DO Primary Care Provider + Encounter Details Date Type Department Care Team (Late st Contact Info) Description 02/05/2024 Beat.not Message Enc [facility] Medical Group Family & Internal Medicine [facility] [address] [place] [address] Antione Valdez DO [address] [place], [place] [phone] Dr Pratt asks for blood work Social History Tobacco Use Types Packs/Day Years Used Date Smoking Tobacco: Former Cigarettes Q uit: 08/26/1977 Smokeless Tobacco: Never Comments:NA Alcohol Use Standard Drinks/Week Comments Not Currently 0 (1 standard drink = 0.6 oz pure alcohol) Maybe 2 highballs a year maybe. PHQ-2 Answer Date Recorded Patient Health Questionnaire-2 Score 0 12/03/2023 Sex and Gender Information Value Date Recorded Sex Assigned at Male 08/12/2024 11:32 AM TERRA COTTA ROOFER HELPER Legal Sex Male 10:45 AM CDT Gender Identity Male 09/18/2021 5:33 AM TERRA COTTA ROOFER HELPER Sexual Orientation Straight 09/18/2021 5: 33 AM TERRA COTTA ROOFER HELPER documented as of this encounter Plan of Treatment Not on file documented as of this encounter Visit Diagnoses Not on filedocumented in this encounter Additional Health Concerns Assessment Noted Time PHQ-9 Depression Total Score: 0 07/05/20 9:47 AM TERRA COTTA ROOFER HELPER documented as of this encounter Care Teams Balance Truing Inspector Relationship Specialty Start Date End Date Antione Valdez DO [address] [place] [address] PCP - General FAMILY PRACTICE 04/08/20 documented as of this encounter
--- OUTSIDE RECORDS SUMMARY | 2024-11-16 08:56 | XMS_ITS | Encounter Summary ---
Author Organization [facility] Address [address] [place] [address] Care Team Providers Care Front End Mechanic Name Role Phone Lima Enriquez DO Primary Care Provider + Reason for Referral * Consultation (Routine) - Authorized Specialty Diagnoses / Procedures Referred By Contac t Referred To Contact OPTOMETRY Diagnoses Examination of eyes and vision Procedures OFFICE/OUTPATIENT NEW LOW MDM 30-44 MINUTES OFFICE/OUTPT VISIT,NEW,LEVL IV OFFICE/OUTPT VISIT,NEW,LEVL V OFFICE/OUTPT VISIT,EST,LEVL III OFFICE/OUTPT VISIT,EST,LEVL IV OFFICE/OUTPT VISIT,EST,LEVL V Lima Enriquez DO [address] [place] [address] Phone: tel: fax: [address] [address] Phone: tel: Referral ID Status Reason Start Date Expiration Date Visits Requested Visits Authorized [id number] Authorized Specialty Services 4 12/23/2024 6 6 Encounter Details Date Type Department Care Team (Late st Contact Info) Description 05/11/2024 MyChart Message Enc [facility] Medical Group Family & Internal Medicine [facility] [address] [place] [address] Lima Enriquez DO [address] [place] [address] Ryan Lindsey - Referral for Eye Exam Social History Tobacco Use Types Packs/Day Years [...] Date Recorded Patient Health Questionnaire-2 Score 0 03/23/2024 Sex and Gender Information Value Date Recorded Sex Assigned at Male 08/12/2024 11:32 AM LOZENGE MAKER Legal Sex Male 10:45 AM CDT Gender Identity Male 09/18/2021 5:33 AM LOZENGE MAKER Sexual Orientation Straight 09/18/2021 5: 33 AM LOZENGE MAKER documented as of this encounter Progress Notes * Jodie Rebolledo MA - 05/12/2024 1:37 PM CDT The patient called for a referral to the following physician: Is this a new consult:No Dr's name: [facility] [employer] [facility] Specialty: Optometry Reason for referral (diagnosis): routine eye exam Z01.00 Appointment: pending Last office visit at this office: Last visit with LIMA ENRIQUEZ in FAMILY PRACTICE was on: 12/03/2023 in [facility] Future appointment scheduled: Future Appointments Date Time Provider Department Center 07/27/2024 8:20 AM [id number] * Lima Enriquez DO - 05/11/2024 4:48 PM CDT OK to refer. documented in this encounter Plan of Treatment Scheduled Referrals Name Type Priority Associated Diagnoses Orde r Schedule Ambulatory Referral to Optometry Referral Routine Examination of eyes and vision Ordered: 05/12/2024 documented as of this encounter Visit Diagnoses Diagnosis Examination of eyes and vision- Primary documented in this encounter Additional Health Concerns Assessment Noted Time PHQ-9 Depression Total Score: 0 03/23/20 24 11:14 AM CDT documented as of this encounter Care Teams Front End Mechanic Relationship Specialty Start Date End Date Lima Enriquez DO [address] [place] [address] PCP - General FAMILY PRACTICE 04/08/20 documented as of this encounter
--- OUTSIDE RECORDS SUMMARY | 2024-11-16 08:56 | XMS_ITS | Encounter Summary ---
Author Organization [facility] Address [address] [place] [address] Care Team Providers Care Driver Wheelchair Name Role Phone Antione Valdez DO Primary Care Provider + Encounter Details Date Type Department Care Team (Late st Contact Info) Description 09/20/2023 SpectraFluidicst Message Enc [facility] Medical Group Family & Internal Medicine [facility] [address] [place] [address] Antione Valdez DO [address] [place], [place] [phone] Thyroid Issue Social History Tobacco Use Types Packs/Day Years Used Date Smoking Tobacco: Former Cigarettes Q uit: 08/26/1977 Smokeless Tobacco: Never Comments:NA Alcohol Use Standard Drinks/Week Comments Not Currently 0 (1 standard drink = 0.6 oz pure alcohol) Maybe 2 highballs a year maybe. PHQ-2 Answer Date Recorded Patient Health Questionnaire-2 Score 0 06/03/2023 Sex and Gender Information Value Date Recorded Sex Assigned at Male 08/12/2024 11:32 AM GAS LINE INSTALLER Legal Sex Male 10:45 AM CDT Gender Identity Male 09/18/2021 5:33 AM GAS LINE INSTALLER Sexual Orientation Straight 09/18/2021 5: 33 AM GAS LINE INSTALLER documented as of this encounter Plan of Treatment Not on file documented as of this encounter Visit Diagnoses Not on filedocumented in this encounter Additional Health Concerns Assessment Noted Time PHQ-9 Depression Total Score: 0 07/05/20 9:47 AM GAS LINE INSTALLER documented as of this encounter Care Teams Driver Wheelchair Relationship Specialty Start Date End Date Antione Valdez DO [address] [place] [address] PCP - General FAMILY PRACTICE 04/08/20 documented as of this encounter
--- OUTSIDE RECORDS SUMMARY | 2024-11-16 08:56 | XMS_ITS | Encounter Summary ---
Author Organization [facility] Address [address] [place] [address] Care Team Providers Care Tandem Operator Name Role Phone Emily HOOD MD, Edwin Primary Care Provider Stephanie francineilable Neftali Forrester MD Unavailable Kaushal Walker MD Unavailable [phone] Antione Valdez DO Primary Care Provider + Encounter Details Date Type Department Care Team (Late st Contact Info) Description 11/04/2014 [facility] Outpatient Visit [facility] [address] [place] [address] Unknown, Provider Social History Tobacco Use Types Packs/Day Years Used Date Smoking Tobacco: Former Cigarettes Smokeless Tobacco: Never Alcohol Use Standard Drinks/Week Comments No 0 (1 standard drink = 0.6 oz pur e alcohol) Sex and Gender Information Value Date Recorded Sex Assigned at Not on file Gender Identity Not on file Sexual Orientation Not on file documented as of this encounter Plan of Treatment Not on file documented as of this encounter Visit Diagnoses Not on filedocumented in this encounter Care Teams Tandem Operator Relationship Specialty Start Date End Date Gregorio Diaz III, MD PCP - General 11/20/08 12/11/18 Antione Valdez DO [address] [place] [address] PCP - General 11/23/22 Neftali Forrester MD [address] [facility] [address] [place] [address] 04/06/10 Kaushal Walker MD [address] [address] 04/06/10 documented as of this encounter
--- OUTSIDE RECORDS SUMMARY | 2024-11-16 08:56 | XMS_ITS | Encounter Summary ---
Author Organization [facility] Address [address] [place] [address] Care Team Providers Care Molder Sweep Name Role Phone Antione Valdez DO Primary Care Provider + Encounter Details Date Type Department Care Team (Late st Contact Info) Description 11/14/2022 MyChart Message Enc [facility] Medical Group Family & Internal Medicine [facility] [address] [place] [address] Antione Valdez DO [address] [place], [place] [phone] Hearing test Social History Tobacco Use Types Packs/Day Years [...] Sex Assigned at Male 08/12/2024 11:32 AM INFRASTRUCTURE PROJECT MANAGER Legal Sex Male 10:45 AM CDT Gender Identity Male 09/18/2021 5:33 AM INFRASTRUCTURE PROJECT MANAGER Sexual Orientation Straight 09/18/2021 5: 33 AM INFRASTRUCTURE PROJECT MANAGER documented as of this encounter Plan of Treatment Not on file documented as of this encounter Visit Diagnoses Not on filedocumented in this encounter Additional Health Concerns Assessment Noted Time PHQ-9 Depression Total Score: 0 07/05/20 22 9:47 AM INFRASTRUCTURE PROJECT MANAGER documented as of this encounter Care Teams Molder Sweep Relationship Specialty Start Date End Date Antione Valdez DO [address] [place] [address] PCP - General FAMILY PRACTICE 04/08/20 documented as of this encounter
--- OUTSIDE RECORDS SUMMARY | 2024-11-16 08:56 | XMS_ITS | Encounter Summary ---
Author Organization [facility] Address [address] [place] [address] Care Team Providers Care Oracle Fusion Middleware Developer Name Role Phone Antione Valdez DO Primary Care Provider + Encounter Details Date Type Department Care Team (Late st Contact Info) Description 10/14/2023 Pulse Therapeuticst Message Enc [facility] Medical Group Family & Internal Medicine [facility] [address] [place] [address] Antione Valdez DO [address] [place], [place] [phone] Scheduled Bloodwork Social History Tobacco Use Types Packs/Day Years [...] Sex Assigned at Male 08/12/2024 11:32 AM WHEEL MILL OPERATOR Legal Sex Male 10:45 AM CDT Gender Identity Male 09/18/2021 5:33 AM WHEEL MILL OPERATOR Sexual Orientation Straight 09/18/2021 5: 33 AM WHEEL MILL OPERATOR documented as of this encounter Plan of Treatment Not on file documented as of this encounter Visit Diagnoses Not on filedocumented in this encounter Additional Health Concerns Assessment Noted Time PHQ-9 Depression Total Score: 0 07/05/20 9:47 AM WHEEL MILL OPERATOR documented as of this encounter Care Teams Oracle Fusion Middleware Developer Relationship Specialty Start Date End Date Antione Valdez DO [address] [place] [address] PCP - General FAMILY PRACTICE 04/08/20 documented as of this encounter
--- OUTSIDE RECORDS SUMMARY | 2024-11-16 08:56 | XMS_ITS | Encounter Summary ---
Author Organization [facility] Address [address] [place] [address] Care Team Providers Care Errand Runner Name Role Phone Antione Valdez DO Primary Care Provider + Encounter Details Date Type Department Care Team (Late st Contact Info) Description 05/14/2022 MyChart Message Enc [facility] Medical Group Family & Internal Medicine [facility] [address] [place] [address] Antione Valdez DO [address] [place], [place] [phone] Pfizer Covid 19 - Booster Social History Tobacco Use Types Packs/Day Years [...] Sex Assigned at Male 08/12/2024 11:32 AM WIRE DRAWING MACHINE TENDER Legal Sex Male 10:45 AM CDT Gender Identity Male 09/18/2021 5:33 AM WIRE DRAWING MACHINE TENDER Sexual Orientation Straight 09/18/2021 5: 33 AM WIRE DRAWING MACHINE TENDER COVID-19 Exposure Response Date Recorded In the last 10 days, have yo u been in contact with someone who was confirmed or suspected to have Coronavirus/COVID-19? No / Unsure 05/01/2022 8:57 AM CDT documented as of this encounter Progress Notes * Antione Valdez DO - 05/14/2022 12:45 PM CDT Noted, pt needs to call his eye doctor today. documented in this encounter Plan of Treatment Not on file documented as of this encounter Visit Diagnoses Not on filedocumented in this encounter Additional Health Concerns Assessment Noted Time PHQ-9 Depression Total Score: 0 09/20/19 22 9:44 AM WIRE DRAWING MACHINE TENDER documented as of this encounter Care Teams Errand Runner Relationship Specialty Start Date End Date Antione Valdez DO [address] [place] [address] PCP - General FAMILY PRACTICE 04/08/20 documented as of this encounter
--- OUTSIDE RECORDS SUMMARY | 2024-11-16 08:56 | XMS_ITS | Encounter Summary ---
Author Organization [facility] Address [address] [place] [address] Care Team Providers Care Prescription Eyeglass Maker Name Role Phone Antione Valdez DO Primary Care Provider + Encounter Details Date Type Department Care Team (Late st Contact Info) Description 04/19/2022 MyChart Message Enc [facility] Medical Group Family & Internal Medicine [facility] [address] [place] [address] Antione Valdez DO [address] [place], [place] [phone] UltraSound for Elevated Parathyroid Hormones Social History Tobacco Use Types Packs/Day Years [...] Sex Assigned at Male 08/12/2024 11:32 AM COGENERATION OPERATOR Legal Sex Male 10:45 AM CDT Gender Identity Male 09/18/2021 5:33 AM COGENERATION OPERATOR Sexual Orientation Straight 09/18/2021 5: 33 AM COGENERATION OPERATOR COVID-19 Exposure Response Date Recorded In the last 10 days, have yo u been in contact with someone who was confirmed or suspected to have Coronavirus/COVID-19? No / Unsure 04/13/2022 2:07 PM CDT documented as of this encounter Plan of Treatment Not on file documented as of this encounter Visit Diagnoses Not on filedocumented in this encounter Additional Health Concerns Assessment Noted Time PHQ-9 Depression Total Score: 0 09/20/19 9:44 AM COGENERATION OPERATOR documented as of this encounter Care Teams Prescription Eyeglass Maker Relationship Specialty Start Date End Date Antione Valdez DO [address] [place] [address] PCP - General FAMILY PRACTICE 04/08/20 documented as of this encounter
--- OUTSIDE RECORDS SUMMARY | 2024-11-16 08:56 | XMS_ITS | Encounter Summary ---
Author Organization [facility] Address [address] [place] [address] Care Team Providers Care Professor Of Biological Sciences Name Role Phone Antione Valdez DO Primary Care Provider + Encounter Details Date Type Department Care Team (Latest Contact Info) Description 12/23/[address] [facility] Medical Group Family & Internal Medicine [facility] [address] [place] [address] Antione Valdez DO [address] [place], [place] [phone] My Office Visit with Dr Block/ADELAU - Otolaryngology Social History Tobacco Use Types Packs/Day Years [...] Sex Assigned at Male 08/12/2024 11:32 AM SCARFER Legal Sex Male 10:45 AM CDT Gender Identity Male 09/18/2021 5:33 AM SCARFER Sexual Orientation Straight 09/18/2021 5: 33 AM SCARFER documented as of this encounter Progress Notes * Antione Valdez DO - 12/24/2022 1:18 PM CDT I'd recommend he reach out to Dr. Pratt. If Dr. 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 Otherwise, it is reasonable to monitor for now. documented in this encounter Plan of Treatment Not on file documented as of this encounter Visit Diagnoses Not on filedocumented in this encounter Additional Health Concerns Assessment Noted Time PHQ-9 Depression Total Score: 0 07/05/20 22 9:47 AM SCARFER documented as of this encounter Care Teams Professor Of Biological Sciences Relationship Specialty Start Date End Date Antione Valdez DO [address] [place] [address] PCP - General FAMILY PRACTICE 04/08/20 documented as of this encounter
--- OUTSIDE RECORDS SUMMARY | 2024-11-16 08:56 | XMS_ITS | Encounter Summary ---
Author Organization [facility] Address [address] [place] [address] Care Team Providers Care Cook Chef Name Role Phone AlexiesauAntione José AMADOR Primary Care Provider + Encounter Details Date Type Department Care Team (Late st Contact Info) Description 05/01/2022 [employer] Research Message Enc [facility] [address] [address] [facility] Provider Stress test and Echocardiogram results. Social History Tobacco Use Types Packs/Day Years [...] Sex Assigned at Male 08/12/2024 11:32 AM SENIOR RESEARCH FELLOW Legal Sex Male 10:45 AM CDT Gender Identity Male 09/18/2021 5:33 AM SENIOR RESEARCH FELLOW Sexual Orientation Straight 09/18/2021 5: 33 AM SENIOR RESEARCH FELLOW COVID-19 Exposure Response Date Recorded In the [...] Total Score: 0 09/20/19 22 9:44 AM SENIOR RESEARCH FELLOW documented as of this encounter Care Teams Cook Chef Relationship Specialty Start Date End Date Antione Valdez DO [address] [place] [address] PCP - General FAMILY PRACTICE 04/08/20 documented as of this encounter
--- OUTSIDE RECORDS SUMMARY | 2024-11-16 08:56 | XMS_ITS | Encounter Summary ---
Author Organization [facility] Address [address] [place] [address] Care Team Providers Care Lime Kiln Operator Name Role Phone Emily HOOD MD, Edwin Primary Care Provider Stephanie francineilable Neftali Forrester MD Unavailable Kaushal Walker MD Unavailable [phone] Antione Valdez DO Primary Care Provider + Encounter Details Date Type Department Care Team (Late st Contact Info) Description 03/03/2014 [facility] Out[facility] Visit [facility] [address] [place] [address] Unknown, Provider Social History Tobacco Use Types [...] on filedocumented in this encounter Care Teams Lime Kiln Operator Relationship Specialty Start Date End Date Gregorio Diaz III, MD PCP - General 11/20/08 12/11/18 Antione Valdez DO [address] [place] [address] PCP - General 11/23/22 Neftali Forrester MD [address] [facility] [address] [place] [address] 04/06/10 Kaushal Walker MD [address] [address] 04/06/10 documented as of this encounter
--- OUTSIDE RECORDS SUMMARY | 2024-11-16 08:57 | XMS_ITS | Encounter Summary ---
Author Organization [facility] Address [address] [place] [address] Care Team Providers Care Wheelchair Van Driver Name Role Phone Antione Valdez DO Primary Care Provider + Encounter Details Date Type Department Care Team (Late st Contact Info) Description 06/15/2022 Zondert Message Enc [facility] Medical Group Family & Internal Medicine [facility] [address] [place] [address] Antione Valdez DO [address] [place], [place] [phone] Aspirin Social History Tobacco Use Types Packs/Day Years [...] Sex Assigned at Male 08/12/2024 11:32 AM LOAN REVIEWER Legal Sex Male 10:45 AM CDT Gender Identity Male 09/18/2021 5:33 AM LOAN REVIEWER Sexual Orientation Straight 09/18/2021 5: 33 AM LOAN REVIEWER COVID-19 Exposure Response Date Recorded In the last 10 days, have yo u been in contact with someone who was confirmed or suspected to have Coronavirus/COVID-19? No / Unsure 06/18/2022 8:01 AM CDT documented as of this encounter Progress Notes * Antione Valdez DO - 06/18/2022 9:24 AM CDT Noted, thank you. documented in this encounter Plan of Treatment Not on file documented as of this encounter Visit Diagnoses Not on filedocumented in this encounter Additional Health Concerns Assessment Noted Time PHQ-9 Depression Total Score: 0 09/20/19 22 9:44 AM LOAN REVIEWER documented as of this encounter Care Teams Wheelchair Van Driver Relationship Specialty Start Date End Date Antione Valdez DO [address] [place] [address] PCP - General FAMILY PRACTICE 04/08/20 documented as of this encounter
--- OUTSIDE RECORDS SUMMARY | 2024-11-16 08:57 | XMS_ITS | Encounter Summary ---
Author Organization [facility] Address [address] [place] [address] Care Team Providers Care Shot Peen Operator Name Role Phone Antione Valdez DO Primary Care Provider + Encounter Details Date Type Department Care Team (Late st Contact Info) Description 07/02/[address] [facility] Medical Group Family & Internal Medicine [facility] [address] [place] [address] Antione Valdez DO [address] [place], [place] [phone] Aspirin Social History Tobacco Use Types Packs/Day [...] Sex Assigned at Male 08/12/2024 11:32 AM TRANSPLANT SURGEON Legal Sex Male 10:45 AM CDT Gender Identity Male 09/18/2021 5:33 AM TRANSPLANT SURGEON Sexual Orientation Straight 09/18/2021 5: 33 AM TRANSPLANT SURGEON COVID-19 Exposure Response Date Recorded In the last 10 days, have yo u been in contact with someone who was confirmed or suspected to have Coronavirus/COVID-19? No / Unsure 07/05/2022 9:05 AM TRANSPLANT SURGEON documented as of this encounter Plan of Treatment Not on file documented as of this encounter Visit Diagnoses Not on filedocumented in this encounter Additional Health Concerns Assessment Noted Time PHQ-9 Depression Total Score: 0 09/20/19 22 9:44 AM TRANSPLANT SURGEON documented as of this encounter Care Teams Shot Peen Operator Relationship Specialty Start Date End Date Antione Valdez DO [address] [place] [address] PCP - General FAMILY PRACTICE 04/08/20 documented as of this encounter
--- OUTSIDE RECORDS SUMMARY | 2024-11-16 08:57 | XMS_ITS | Clinical Summary ---
Author Organization [facility] Address [facility] [place] [address] Care Team Providers Care Core Assembly Supervisor Name Role Phone Lima Enriquez DO Primary Care Provider + Allergies Active Allergy Reactions Criticality Noted Date Comments Antibiotics Headache,Photosensitivity,Swelling 04/26/2021 Doxycycline Other (see comment) Low 02/05/2024 Erythromycin Unknown 04/08/2020 Penicillins Rash,Unknown Low 11/20/2008 Tetracycline Unknown 11/20/2008 Medications multi vitamin/minerals tablet Take 1 tablet by mouth daily. Active cetirizine 10 MG tablet Take 1 tablet (10 mg total) by mouth daily. Active Lutein-Zeaxanthin 20-1 MG Cap 08/26/19 22 Active sertraline (ZOLOFT) 25 MG tabletIndications:Mild episode of recurrent major depressive disorder 1 tab daily 90 tablet 1 08/12/20 24 Active rosuvastatin (CRESTOR) 10 MG tabletIndications:Pure hypercholesterolemia Take 1 tablet (10 mg total) by mouth nightly at bedtime. at bedtime 90 tablet 3 10/27/19 25 Active rosuvastatin (CRESTOR) 10 MG tabletIndications:Pure hypercholesterolemia TAKE 1 TABLET BY MOUTH NIGHTLY AT BEDTIME 90 tablet 07/07/20 24 025 Discontin ued(Reord er) rosuvastatin (CRESTOR) 10 MG tabletIndications:Pure hypercholesterolemia Take 1 tablet (10 mg total) by mouth nightly at bedtime. at bedtime 90 tablet 3 10/27/19 25 025 Discontin ued(Reord er) Active Problems Problem Noted Date Diagnosed Date Mild episode of recurrent major depressive disor domenic 06/24/2024 Atherosclerosis of abdominal aorta 05/01/2022 Abdominal aortic aneurysm (AAA) without rupture 05/01/2022 Hyperparathyroidism, unspecified ([facility]) 05/01 Hypercalcemia 03/30/2022 BMI 26.0-26.9,adult 09/19/2020 Pure hypercholesterolemia 05/04/2020 Vitamin D deficiency 02/15/2010 Encounters Date Type Department Care Team Description 11/16/2024 7:40 AM CDT Laboratory Only [facility] Family & Internal Medicine [address] [address] Lima Enriquez DO 11/16/2024 Travel 11/02/2024 Scan [employer] SRVCS Scanned, [facility] 10/25/2024 MyChart Message Enc [facility] Internal [address] [address] Lima Enriuqez DO Victor Rosalia s Rosuvastatin Prescription 10/19/2024 Telephone [facility] Family & Internal [address] [address] Lima Enriquez DO Referral from Last 3 Months Immunizations Name Administration Dates Next Due Arexvy Respiratory Syncytial Virus (RSV, adjuvanted) 0.5 mL, PF 07/11/2023 Fluzone High Dose (IIV, triv alent, 0.5mL) 06/24/2024,06/25/2019,06/23/2018 Fluzone High Dose - >Age 65 (Prefilled Syringe) 05/13/2022,06/16/2021,05/04/2020,2018,06/23/2018 H1N1 2009 Influenza Vaccine 05/13/2022,1 ,05/04/2020,2018,06/23/2018 Influenza (Generic) 06/08/2015,06/06/2014,2012 Influenza Adult (Generic) 05/16/2023,06/08/2015 MODERNA COVID-19 (12+) MRNA, LNP-S, PF, 100 MCG/ 0.5 ML DOSE 06/26/2021,11/05/2020,10/08/2020 MODERNA COVID-19, 6-11 Prima ry (DARK BLUE CAP) (previous 18+ monovalent booster), mRNA, LNP-S,PF, 50 mcg/ 0.50mL dose 06/26/2021,11/05/2020,10/08/2020 PFIZER COVID-19 (ROBERTS CAP), MRNA, LNP-S, PF, 30 MCG/0.3 ML SILVANO-SUCROSE, IM 01/06/2022 PFIZER COVID-19 BIVALENT (12 +) mRNA, LNP-S, PF, 30 MCG/0.3 ML DOSE 05/12/2022 Pneumococcal (Pneumovax 23) 03/24/2018, 7 Pneumococcal (Prevnar 13) 10/07/2014 Pneumococcal (Prevnar 20) 05/01/2022 Shingrix 03/09/2021,05/24/2020 Tdap (Generic) 03/24/2018,08/26/2016 Zoster (Zostavax) [address]365 Unt/0.65Ml 03/24/2018, Family History Medical History Relation Comments polio Brother CHF Father Prostate Cancer Father Relation Status Comments Brother Father Mother Social History Tobacco Use Types Packs/Day Years Used Date Smoking Tobacco: Former Cigarettes Q uit: 08/26/1977 Smokeless Tobacco: Never Tobacco Cessation:Counseling Given: Yes Comments:NA Alcohol Use Standard Drinks/Week Comments Not [...] Sex Assigned at Male 08/12/2024 11:32 AM CUT TO LENGTH OPERATOR Legal Sex Male 10:45 AM CDT Gender Identity Male 09/18/2021 5:33 AM CUT TO LENGTH OPERATOR Sexual Orientation Straight 09/18/2021 5: 33 AM CUT TO LENGTH OPERATOR Last Filed Vital Signs Vital Sign Reading Time Taken Comments Blood Pressure 128/76 08/12/2024 11:32 AM CUT TO LENGTH OPERATOR Pulse 78 08/12/2024 11:32 AM CUT TO LENGTH OPERATOR Temperature 36.2 C (97.2 F) 08/12/2024 11:32 AM CUT TO LENGTH OPERATOR Respiratory Rate 16 08/12/2024 11:32 AM CUT TO LENGTH OPERATOR Oxygen Saturation 97% 08/12/2024 11:32 AM CUT TO LENGTH OPERATOR Inhaled Oxygen Concentration - - Weight 90.4 kg (199 lb 3.2 oz) 08/12/2024 11:32 AM CUT TO LENGTH OPERATOR Height 185.4 cm (6' 1 ) 08/12/2024 11:32 AM CUT TO LENGTH OPERATOR Body Mass Index 26.28 08/12/2024 11:32 AM CUT TO LENGTH OPERATOR Plan of Treatment Health Maintenance Due Date Last Done Comments COVID-19 Vaccine ( season) 2024 06/13/2023, 05/12/2022, 01/06/2022, Additional history exists PHQ-2 (Physician [place]) 08/26/2024 08/12/2024 Annual Medicare Wellness Visit 03/27/2025 03/26/2024, 07/05/2022 Colorectal Cancer Screening Colonoscopy (10 Years) 01/16/2028 01/15/2023, 09/06/2016 DTaP, Tdap and Td Vaccines (3 - Td or Tdap) 03/24/2028 03/24/2018, 08/26/2016 Zoster Vaccines Completed 03/09/2021, 04/27, 03/24/2018, Additional history exists AAA SCREENING Completed 04/13/2022, 04/12/2022 Pneumococcal Vaccine: 65+ Years Completed 05/01/2022, 03/24/2018, 08/26/2016, Additional history exists Hepatitis C Completed 06/18/2022 RSV Immunization or 60+ Years Completed 07/11/2023 Influenza Adult Completed 06/24/2024, 04/27, 05/13/2022, Additional history exists Meningococcal B Vaccine Aged Out No l onger eligible based on patient's age to complete this topic Meningococcal Vaccine Aged Out No ramon yani eligible based on patient's age to complete this topic RSV Immunizations Under 20 Months Aged Out No longer eligible based on patient's age to complete this topic Procedures Procedure Name Priority Date/Time Associated Diagnosis Comments COLLECTION VENOUS BLOOD VENIPUNCTURE Routine 11/16/2024 8:08 AM CDT Pure hypercholesterolemi a Mild episode of recurrent major depressive disorder Annual physical exam Screening for prostate cancer COLONOSCOPY GENERIC (SCAN ORDER) 01/15/2023 HEPATITIS C ANTIBODY W/RFX TO HCV RNA Routine 06/18/2022 8:21 AM CDT Need for hepatitis C screening test US TESTICULAR W DOPPLER Routine 04/13/2022 3:40 PM CDT Pain in testicle, unspecified laterality from Last 3 Months or Most Recently Relevant to Health Maintenance Results * COLONOSCOPY GENERIC (01/15/2023) 01/15/2023 [facility] Scanned SCANNING Final Resu lt * HEPATITIS C ANTIBODY W/RFX TO HCV RNA ([facility] ONLY) (06/18/2022 8:21 AM CDT) HEPATITIS C AB NON-REACTI VE NON-REACT EVELYN [facility] SIGNAL TO CUTOFF 0.01 <[address] [facility] Comment: HCV antibody was non-reactive. There is no laboratory evidence of HCV infection. In most cases, no further action is required. However, if recent HCV exposure is suspected, a test for HCV RNA (test code 58281) is suggested. For additional information please refer to http://education.[employer].Tranzlogic/faq/WWE48t0 (This link is being provided for informational/ educational purposes only.) 06/18/2022 8:21 AM CDT 06/19/2022 1:57 PM CDT Lima Enriquez DO LABORATORY Final Re sult [facility] [address] [id number] * US TESTICULAR W DOPPLER (04/13/2022 3:40 PM CDT) Anatomical Region Laterality Modality Pelvis Ultrasound 04/13/2022 3:55 PM CDT Impressions 04/13/2022 3:58 PM CDT IMPRESSION: 1. Mildly heterogeneous echotexture in both testicles. No discrete intratesticular mass lesion identified. 2. Right testicle measures 4.1 x 1.8 x 2.8 cm. Left testicle measures 3.3 x 2.1 x 2.6 cm. 3. Small bilateral hydroceles. No varicocele. Small complex cyst in the right epididymis measuring 6 x 7 x 12 mm. Right and left epididymis are otherwise unremarkable. 4. Symmetric color and Doppler flow in both testicles without evidence of torsion. Ordered By: LIMA ENRIQUEZ Interpreted By: Dano Simpson, 04/13/2022 3:55 PM Narrative 04/13/2022 3:58 PM CDT EXAMINATION: US TESTICULAR W DOPPLER EXAM DATE/TIME: 04/13/2022 2:24 PM CLINICAL HISTORY: Intermittent scrotal pain. COMPARISON: No comparison. Procedure Note Musa Simpson MD - 04/13/2022 EXAMINATION: US TESTICULAR W DOPPLER EXAM DATE/TIME: 04/13/2022 2:24 PM CLINICAL HISTORY: Intermittent scrotal pain. COMPARISON: No comparison. IMPRESSION: 1. Mildly heterogeneous echotexture in both testicles. No discreteintratesticular mass lesion identified. 2. Right testicle measures 4.1 x 1.8 x 2.8 cm. Left testicle measures 3.3x 2.1 x 2.6 cm. 3. Small bilateral hydroceles. No varicocele. Small complex cyst in theright epididymis measuring 6 x 7 x 12 mm. Right and left epididymis areotherwise unremarkable. 4. Symmetric color and Doppler flow in both testicles without evidence oftorsion. Ordered By: LIMA ENRIQUEZ Interpreted By: Dano Simpson, 04/13/2022 3:55 PM Lima Enriquez DO ULTRASOUND Final Re sult from Last 3 Months or Most Recently Relevant to Health Maintenance Insurance [employer] Care Teams Core Assembly Supervisor Relationship Specialty Start Date End Date Lima Enriquez DO [address] [place] [phone] PCP - General FAMILY PRACTICE 04/08/20
--- OUTSIDE RECORDS SUMMARY | 2024-11-16 08:57 | XMS_ITS | Encounter Summary ---
Author Organization [facility] Address [address] [place] [address] Care Team Providers Care Data Analytics Specialist Name Role Phone Antione Valdez DO Primary Care Provider + Encounter Details Date Type Department Care Team (Latest Contact Info) Description 08/07/2022 SeeSpacet Message Enc [facility] Medical Group Family & Internal Medicine [facility] [address] [place] [address] Antione Valdez DO [address] [place], [place] [phone] Ryan Lindsey - Diet Assistant Appointment Social History Tobacco Use Types Packs/Day Years [...] Sex Assigned at Male 08/12/2024 11:32 AM MANAGER OF REVENUE Legal Sex Male 10:45 AM CDT Gender Identity Male 09/18/2021 5:33 AM MANAGER OF REVENUE Sexual Orientation Straight 09/18/2021 5: 33 AM MANAGER OF REVENUE COVID-19 Exposure Response Date Recorded In the last 10 days, have yo u been in contact with someone who was confirmed or suspected to have Coronavirus/COVID-19? No / Unsure 08/03/2022 9:20 AM MANAGER OF REVENUE documented as of this encounter Plan of Treatment Not on file documented as of this encounter Visit Diagnoses Not on filedocumented in this encounter Additional Health Concerns Assessment Noted Time PHQ-9 Depression Total Score: 0 07/05/20 9:47 AM MANAGER OF REVENUE documented as of this encounter Care Teams Data Analytics Specialist Relationship Specialty Start Date End Date Antione Valdez DO [address] [place] [address] PCP - General FAMILY PRACTICE 04/08/20 documented as of this encounter
[2024-11-16 09:35] LABS: Albumin Level 4.2 g/dL (3.5-5.1); Anion Gap 6 mmol/L (4-12); Blood Urea Nitrogen 17 mg/dL (9-20); Calcium 9.2 mg/dL (8.4-10.2); Carbon Dioxide 30 mmol/L (22-30); Chloride 105 mmol/L (98-107); Estimated Glomerular Filt Rate > 60; Glucose 90 mg/dL (65-110); Phosphorus 3.1 mg/dL (2.5-4.5); Potassium 4.5 mmol/L (3.4-5.0); Sodium 141 mmol/L (137-145)
[2024-11-16 10:09] LABS: Vitamin D 25 Hydroxy 63.4 ng/mL
== END 2024-11-16 08:31 | disposition home or self-care (01) ==
LOC: ANHLAB 08:31
PROVIDERS: PCP Student in an Organized Health Care Education/Training Program; Visit Provider Internal Medicine Endocrinology, Diabetes & Metabolism
DX: E21.3 Hyperparathyroidism, unspecified (principal); R79.89 Other specified abnormal findings of blood chemistry
CPT/HCPCS: 36415; 80069; 82306; 83970